=== PATIENT | female | born 2000 | race Caucasian/White ===

== ENCOUNTER 2024-01-07 23:17 | Inpatient (IN) ==
--- OUTSIDE RECORDS SUMMARY | 2024-01-07 23:24 | External Medical Summary | Summary of Care ---
Author Name Unknown Organization [facility] Address [address] [place] [address] Phone [phone] Care Team Providers Care Investigative Agent Name Role Phone Unavailable Primary Care Provider Unavailabl e Reason for Visit * Reason Comments Return Visit Encounter Details Date Type Department Care Team (Late st Contact Info) Description 12/19/2023 10:00 AM EDT Office Visit Gynecology/Obstetric [facility] [address] [facility] [place] [address] Christina Koch PA-C [address] [facility] [place] [phone] Encounter for supervision of other normal , third trimester* Allergies No known active allergiesdocumented as of this encounter (statuses as of 12/19/2023) Medications Medication Sig Dispensed Refills Start Date End Date Status Forte Oral Tablet Take by mouth. Active Breast Pump Dispense double electric breast pump. Dx:Z39.1 1 Each 12/07/2023 Active documented as of this encounter (statuses as of 12/19/2023) Active Problems Problem Noted Date Diagnosed Date Encounter for supervision of other normal , third trimester 11/28/2023 Overview: Transferring care at 35w AB+ bloodtype, HbSAG nonractive, HIV nonreactive, RPR nonreactive, Rubella immune, H/H 12.7/36.4, plt 259 Glucola 128 Last pap 05/22/23 NILM Estimated Date of Delivery Comme nts Yes 12/29/2023 Based on Ultraso und documented as of this encounter (statuses as of 12/19/2023) Social History Tobacco Use Types Packs/Day Years Used Date Smoking Tobacco: Never Smokeless Tobacco: Never Alcohol Use Standard Drinks/Week Comments Not Currently 0 (1 standard drink = 0.6 oz pur e alcohol) Hunger Vital Sign Answer Date Recorded Within the past 12 months, y ou worried that your food would run out before you got the money to buy more. Never true 10/27/19 24 Within the past 12 months, t he food you bought just didn't last and you didn't have money to get more. Never true 10/27/2023 [place] Depression Scale Answer Date Recorded [place] Depression Scale Total 0 11/28/2023 The thought of harming myself has occurred to me . Never 11/28/2023 Childcare Answer Date Recorded Do you feel overwhelmed with taking care of a child, family member or friend? No 10/27/2023 Does your family need help f inding childcare? (Household - for ages 0-17 years) Not on file 10/27/2023 Clothing Answer Date Recorded Have you been unable to get clothing when it was really needed? No 10/27/2023 Is your family able to get c lothes or diapers when needed? (Household - for ages 0-17 years) Not on file 10/27/2023 Personal Safety Answer Date Recorded Do you feel unsafe or have concerns for your saf ety? No 10/27/2023 Do you have concerns for you r family's safety? (Household - for ages 0-17 years) Not on file 10/27/2023 Utilities Answer Date Recorded Do you have trouble paying y our heating, water, or electric bill? No 10/27/2023 Is your family able to pay t he heat, water, or electric bill? (Household - for ages 0-17 years) Not on file 10/27/2023 Does your family have access to good internet? (Household - for ages 0-17 years) Not on file 10/27/2023 Employment Status Answer Date Recorded Are you unemployed or without regular income? No 10/27/2023 Does the household have a re gular source of income? (Household - for ages 0-17 years) Not on file 10/27/2023 Social Connections Answer Date Recorded How often do you feel lonely or isolated from th ose around you? Rarely 10/27/2023 Financial Resource Strain Answer Date R ecorded Do you have any trouble payi ng for your medications, or do you think you might in the future? No 10/27/2023 Does your family have troubl e paying for medicine? (Household - for ages 0-17 years) Not on file 10/27/2023 Transportation Needs Answer Date Record ed READ ONLY Do you have troubl e getting a ride to medical visits or work? Never True 10/27/2023 Does your family have a hard time getting a ride to doctors visits? (Household - for ages 0-17 years) Not on file 10/27/2023 Has lack of transportation k ept you from medical appointments, meetings, work, or from getting things needed for daily living? Check all that apply. (Adult - for ages 18 years and over) Not on file 10/27/2023 Do you (or your family) have trouble finding or paying for a ride (transportation)? (Household - for ages 0-17 years) Not on file 10/27/2023 Housing Stability Answer Date Recorded Do you currently live in a s helter or have no steady place to sleep at night? No 10/27/2023 READ ONLY Do you think you a re at risk of becoming homeless? No 10/27/2023 Does your family worry about paying for your home or becoming homeless? (Household - for ages 0-17 years) Not on file 0 10/27/2023 Are you homeless or worried that you might be in the future? (Adult - for ages 18 years and over) Not on file Are you (or your family) german eless or worried that you might be in the future? (Household - for ages 0-17 years) Not on file Food Insecurity Answer Date Recorded Do you need food for this week? No 10/27/2023 Are you able to get enough f ood for your family? (Household - for ages 0-17 years) Not on file 10/27/2023 Does your family need food t his week? (Household - for ages 0-17 years) Not on file 10/27/2023 Do you always have enough fo od for your family? (Household - for ages 0-17 years) Not on file 10/27/2023 Estimated Date of Delivery Comme nts Yes 12/29/2023 Based on Ultraso und Sex and Gender Information Value Date Recorded Sex Assigned at Female 05/01/2023 7:54 PM EST Gender Identity Female 05/01/2023 7:54 PM EST Sexual Orientation Straight 10/27/2023 8: 36 PM EDT Job Start Date Occupation Industry Not on file Not on file Not on file documented as of this encounter Last Filed Vital Signs Vital Sign Reading Time Taken Comments Blood Pressure 120/66 12/19/2023 9:57 AM EDT Pulse - - Temperature - - Respiratory Rate - - Oxygen Saturation - - Inhaled Oxygen Concentration - - Weight 76.7 kg (169 lb) 12/19/2023 9:57 AM EDT Height 171.5 cm (5' 7.5") 12/19/2023 9:57 AM EDT Body Mass Index 26.08 12/19/2023 9:57 AM EDT documented in this encounter Progress Notes * Christina Koch PA-C - 12/19/2023 10:03 AM EDT Sandra Yesenia Fonseca is a 23 year old female here for her routine OB appointment at 38w4d Her Estimated Date of Delivery: 12/29/23 REVIEW OF SYSTEMS She affirms movement. Denies vaginal bleeding, LOF, contractions, N/V, headaches, vision changes, chest pain, RUQ pain. PHYSICAL EXAM Filed Vitals: 12/19/23 0957 BP: 120/66 Weight: 76.7 kg (169 lb) Height: 1.715 m (5' 7.5") +FHT 140s Fundal height 37 cm ASSESSMENT/PLAN Encounter for supervision of other normal , third trimester (Primary) Supervision of - labor precautions and kick counts reviewed RTO in 1 week Christina Koch PA-C 12/19/2023 documented in this encounter Nursing Notes * Flori August LPN - 12/19/2023 10:00 AM EDT 38w4d Denies concerns. documented in this encounter Plan of Treatment Upcoming Encounters Date Type Department Care Team (Late st Contact Info) Description 12/26/2023 8:30 AM EDT Office Visit Gynecology/Obstetrics [facility] [address] [place] [address] Pura Choudhary CRNP [address] [place] [address] Health Maintenance Due Date Last Done Comments Depression Screening 2010 HIV Screening 2013 HPV (Gardasil) Vaccine (1 - 3-dose series) 2013 Hepatitis C Screening 2016 DTaP,Tdap,and Td Vaccines (1 - Tdap) 2017 Hepatitis B Vaccine (1 of 3 - 19+ 3-dose series) 2017 Pap Smear 09/25/2019 COVID-19 Vaccine (1 - 2022-2 4 season) 2023 Influenza Vaccine (FLU shot) (#1) 2024 MENINGOCOCCAL (MENACTRA/MENVEO) Aged Out No longer eligible based on patient's age to complete this topic Pneumococcal Vaccine: Pediat rics (0 to 5 Years) and At-Risk Patients (6 to 64 Years) Aged Out No longer eligible b ased on patient's age to complete this topic documented as of this encounter Medical Devices Not on filedocumented as of this encounter Visit Diagnoses Diagnosis Encounter for supervision of other normal , third trimester- Primary documented in this encounter
--- OUTSIDE RECORDS SUMMARY | 2024-01-07 23:24 | External Medical Summary | Summary of Care ---
Author Name Unknown Organization [facility] Address [address] [place] [address] Phone [phone] Care Team Providers Care Host/Hostess Restaurant Name Role Phone Unavailable Primary Care Provider Unavailabl e Reason for Visit * Reason Comments Return Visit Encounter Details Date Type Department Care Team (Late st Contact Info) Description 01/03/2024 8:15 AM EDT Office Visit Gynecology/Obstetric s [facility] [address] [facility] [place] [address] Sand[facility] Osullivan CR[facility] [address] [facility] [address] Post-term , 40-42 weeks of gestation*; Encounter for supervision of other normal , third trimester Allergies No known active allergiesdocumented as of this encounter (statuses as of 01/03/2024) Medications Medication Sig Dispensed Refills Start Date End Date Status Forte Oral Tablet Take by mouth. Active Breast Pump Dispense double electric breast pump. Dx:Z39.1 1 Each 12/07/2023 Active documented as of this encounter (statuses as of 01/03/2024) Active Problems Problem Noted Date Diagnosed Date Encounter for supervision of other normal , third trimester 11/28/2023 Overview: Transferring care at 35w AB+ bloodtype, HbSAG nonractive, HIV nonreactive, RPR nonreactive, Rubella immune, H/H 12.7/36.4, plt 259 Glucola 128 Last pap 12/11/23 NILM Estimated Date of Delivery Comme nts Yes 12/29/2023 Based on Ultraso und documented as of this encounter (statuses as of 01/03/2024) Social History Tobacco Use Types Packs/Day Years [...] money to get more. Never true 10/27/2023 [place] Depression Scale Answer Date Recorded [place] Depression Scale Total 0 11/28/2023 The thought [...] Sign Reading Time Taken Comments Blood Pressure 124/74 01/03/2024 8:10 AM EDT Pulse - - Temperature - - Respiratory Rate - - Oxygen Saturation - - Inhaled Oxygen Concentration - - Weight 77.1 kg (170 lb) 01/03/2024 8:10 AM EDT Height 171.5 cm (5' 7.5") 01/03/2024 8:10 AM EDT Body Mass Index 26.23 01/03/2024 8:10 AM EDT documented in this encounter Progress Notes * Sandhya Osullivan CRNP - 01/03/2024 8:28 AM EDT 40w5d No concerns. Baby is active. No contractions, mild cramping only. Denies bleeding or LOF. Has IOL 01/07, will be 41w3d. Agreeable to NST/BERNARD on Monday. KAYLA Walters documented in this encounter Nursing Notes * Flori August LPN - 01/03/2024 8:11 AM EDT 40w5d IOL 01/07. documented in this encounter Plan of Treatment Upcoming Encounters Date Type Department Care Team (Late st Contact Info) Description 01/05/2024 1:15 PM EDT Imaging Radiology [address] [place] [address] 01/05/2024 2:00 PM EDT Office Visit Gynecology/Obstetrics [facility] [address] [place] [address] Tiffany Walker PA-C [address] [place] [address] Por[place]irio, Non Stress Tests [facility] [address] [place] [address] Scheduled Orders Name Type Priority Associated Diagnoses Orde r Schedule US PREG LIMITED 1 OR MORE FETUSES Medical Imaging Routine Post-term , 40-42 weeks of gestation Expected: 01/03/2024, Expires: 02/02/2025 Health Maintenance Due Date Last Done Comments [...] as of this encounter Visit Diagnoses Diagnosis Post-term , 40-42 weeks of gestation- Primary Post term , unspecified episode of care Encounter for supervision of other normal , third trimester documented in this encounter
--- OUTSIDE RECORDS SUMMARY | 2024-01-07 23:24 | External Medical Summary | Summary of Care ---
Author Name Unknown Organization [facility] Address [address] [place] [address] Phone [phone] Care Team Providers Care Php Mysql Developer Name Role Phone Unavailable Primary Care Provider Unavailabl e Reason for Visit * Reason Comments Return Visit Non Stress Test Encounter Details Date Type Department Care Team (Late st Contact Info) Description 01/05/2024 2:00 PM EDT Office Visit Gynecology/Obstetric s [facility] [address] [facility] [place] [address] Tiffany Walker PA-C [address] [place] [address] Porfirio Non Stress Tests [facility] [address] [place] [address] Encounter for supervision of other normal , third trimester* Allergies No known active allergiesdocumented as of this encounter (statuses as of 01/05/2024) Medications Medication Sig Dispensed Refills Start Date End Date Status Forte Oral Tablet Take by mouth. Active Breast Pump Dispense double electric breast pump. Dx:Z39.1 1 Each 12/07/2023 Active documented as of this encounter (statuses as of 01/05/2024) Active Problems Problem Noted Date Diagnosed Date Encounter for supervision of other normal , third trimester 11/28/2023 Overview: Transferring care at 35w AB+ bloodtype, HbSAG nonractive, HIV nonreactive, RPR nonreactive, Rubella immune, H/H 12.7/36.4, plt 259 Glucola 128 Last pap 05/22/23 NILM Estimated Date of Delivery Comme nts Yes 12/29/2023 Based on Ultraso und documented as of this encounter (statuses as of 01/05/2024) Social History Tobacco Use Types Packs/Day Years [...] money to get more. Never true 10/27/2023 [place] Depression Scale Answer Date Recorded [place] Depression Scale Total 0 11/28/2023 The thought [...] Sign Reading Time Taken Comments Blood Pressure 124/72 01/05/2024 1:53 PM EDT Pulse - - Temperature - - Respiratory Rate - - Oxygen Saturation - - Inhaled Oxygen Concentration - - Weight 76.9 kg (169 lb 8 oz) 01/05/2024 1:53 PM EDT Height 171.5 cm (5' 7.5") 01/05/2024 1:53 PM EDT Body Mass Index 26.16 01/05/2024 1:53 PM EDT documented in this encounter Progress Notes * Tiffany Walker PA-C - 01/05/2024 2:56 PM EDT 41w0d ASSESSMENT assessment with Non-stress Test completed on 01/05/2024 at 41.0 weeks gestation for indicationof Post ANTONIO heart baseline: 135 bpm Variability: Moderate Decelerations: absent Accelerations: present Contractions: Present irregular, q4-8 minutes, not felt by patient NST start time: 13:30 NST stop time: 14:11 NST strip reviewed, interpreted, and approved by OB provider, Tiffany Walker PA-C. NST strip stored in clinic storage file BERNARD today WNL, preliminary 10.4 cm, vertex. Offered cervical check -- pt politely declines IOL 01/08/2024, pt has number to call. Labor precautions reviewed. RTC for PP visit Tiffany Walker PA-C documented in this encounter Nursing Notes * Farida Cross, RN - 01/05/2024 1:54 PM EDT Patient there for NST for post dates 41w0d today + FM No concern Had BERNARD today- 10.4 Farida Cross RN documented in this encounter Plan of Treatment Health Maintenance Due Date Last Done Comments Depression Screening 2010 HIV Screening 2013 HPV (Gardasil) Vaccine (1 - 3-dose series) 2013 Hepatitis C Screening 2016 DTaP,Tdap,and Td Vaccines (1 - Tdap) 2017 Hepatitis B Vaccine (1 of 3 - 19+ 3-dose series) 2017 Pap Smear 09/25/2019 COVID-19 Vaccine ( - 2022-2 4 season) 2023 Influenza Vaccine [...]
--- OUTSIDE RECORDS SUMMARY | 2024-01-07 23:24 | External Medical Summary | Summary of Care ---
Author Name Unknown Organization [facility] Address [address] [place] [address] Phone [phone] Care Team Providers Care Asset Coordinator Name Role Phone Unavailable Primary Care Provider Unavailabl e Reason for Visit * Reason Comments Return Visit Encounter Details Date Type Department Care Team (Late st Contact Info) Description 12/07/2023 9:00 AM EDT Office Visit Gynecology/Obstetric s [facility] [address] [place] [address] Sandhya Osullivan CRNP [address] [place] [address] Encounter for supervision of other normal , third trimester* Allergies No known active allergiesdocumented as of this encounter (statuses as of 12/07/2023) Medications Medication Sig Dispensed Refills Start Date End Date Status Forte Oral Tablet Take by mouth. Active Breast Pump Dispense double electric breast pump. Dx:Z39.1 1 Each 12/07/2023 Active documented as of this encounter (statuses as of 12/07/2023) Active Problems Problem Noted Date Diagnosed Date Encounter for supervision of other normal , third trimester 11/28/2023 Overview: Transferring care at 35w AB+ bloodtype, HbSAG nonractive, HIV nonreactive, RPR nonreactive, Rubella immune, H/H 12.7/36.4, plt 259 Glucola 128 Last pap 05/22/23 NILM Estimated Date of Delivery Comme nts Yes 12/29/2023 Based on Ultraso und documented as of this encounter (statuses as of 12/07/2023) Social History Tobacco Use Types Packs/Day Years [...] money to get more. Never true 10/27/2023 [place] Depression Scale Answer Date Recorded [place] Depression Scale Total 0 11/28/2023 The thought [...] Sign Reading Time Taken Comments Blood Pressure 128/68 12/07/2023 9:02 AM EDT Pulse - - Temperature - - Respiratory Rate - - Oxygen Saturation - - Inhaled Oxygen Concentration - - Weight 76.4 kg (168 lb 6.4 oz) 12/07/2023 9:02 A M EDT Height - - Body Mass Index 25.99 11/28/2023 1:01 PM EDT documented in this encounter Progress Notes * Sandhya Osullivan CRNP - 12/07/2023 9:15 AM EDT 36w6d No concerns. Baby is active. No contractions, bleeding, LOF. Planning to breastfeed, script given to nursing to send to [facility]. GBS today. Compressor Operator Portable Documentation Provider requested assistant project manager. Name of assistant project manager: KAYLA Chambers * Davida Leary MED ASSIST - 12/07/2023 9:02 AM EDT 36w6d Denies vaginal bleeding/rom + movement No new concerns GBS today documented in this encounter Plan of Treatment Upcoming Encounters Date Type Department Care Team (Late st Contact Info) Description 12/12/2023 8:45 AM EDT [facility] [address] [place] [address] Pura Choudhary CRNP [address] [place] [address] 12/26/2023 8:30 AM EDT Office Visit Gynecology/Obstetrics [facility] [address] [place] [address] BackerPura CRNP [address] [place] [address] Pending Results Name Type Priority Associated Diagnoses Date /Time GROUP B STREP CULTURE/PCR Lab Routine Encounter for supervision of other normal , third trimester 12/07/2023 9:28 AM EDT Scheduled Orders Name Type Priority Associated Diagnoses Orde r Schedule GROUP B STREP CULTURE/PCR Lab Routine Encounter for supervision of other normal , third trimester Expected: 12/07/2023, Expires: 12/06/2024 Health Maintenance Due Date Last Done Comments Depression Screening 2010 GARDASIL-HPV IMMUNIZATION SE CECILIA (1 - 3-dose series) 2013 HIV Screening 2013 Hepatitis C Screening 2016 DTaP,Tdap,and Td Vaccines (1 - Tdap) 2017 Hepatitis B (1 of 3 - 19+ 3- dose series) 2017 Pap Smear 09/25/2019 COVID-19 Vaccine ( - 2022-2 4 season) 2023 Influenza Vaccine (FLU shot) (Season Ended) 2024 MENINGOCOCCAL (MENACTRA/MENVEO) Aged Out No longer [...]
--- OUTSIDE RECORDS SUMMARY | 2024-01-07 23:24 | External Medical Summary | Summary of Care ---
Author Name Unknown Organization [facility] Address [address] [place] [address] Phone [phone] Care Team Providers Care Reception Interviewer Name Role Phone Unavailable Primary Care Provider Unavailabl e Reason for Visit * Reason Comments Return Visit Encounter Details Date Type Department Care Team (Late st Contact Info) Description 12/12/2023 8:45 AM EDT Office Visit Gynecology/Obstetric s [facility] [address] [facility] [place] [address] Pura [facility]oudhary CRNP [address] [facility] [address] Encounter for supervision of other normal , third trimester* Allergies No known active allergiesdocumented as of this encounter (statuses as of 12/12/2023) Medications Medication Sig Dispensed Refills Start Date End Date Status Forte Oral Tablet Take by mouth. Active Breast Pump Dispense double electric breast pump. Dx:Z39.1 1 Each 12/07/2023 Active documented as of this encounter (statuses as of 12/12/2023) Active Problems Problem Noted Date Diagnosed Date Encounter for supervision of other normal , third trimester 11/28/2023 Overview: Transferring care at 35w AB+ bloodtype, HbSAG nonractive, HIV nonreactive, RPR nonreactive, Rubella immune, H/H 12.7/36.4, plt 259 Glucola 128 Last pap 05/22/23 NILM Estimated Date of Delivery Comme nts Yes 12/29/2023 Based on Ultraso und documented as of this encounter (statuses as of 12/12/2023) Social History Tobacco Use Types Packs/Day Years [...] money to get more. Never true 10/27/2023 [place] Depression Scale Answer Date Recorded [place] Depression Scale Total 0 11/28/2023 The thought [...] Sign Reading Time Taken Comments Blood Pressure 118/64 12/12/2023 8:44 AM EDT Pulse - - Temperature - - Respiratory Rate - - Oxygen Saturation - - Inhaled Oxygen Concentration - - Weight 74.8 kg (165 lb) 12/12/2023 8:44 AM EDT Height 171.5 cm (5' 7.5") 12/12/2023 8:44 AM EDT Body Mass Index 25.46 12/12/2023 8:44 AM EDT documented in this encounter Progress Notes * Pura Choudhary CRNP - 12/12/2023 8:54 AM EDT 37w4d Doing well, no ctx/leaking/bleeding. Baby is active. Ordered a breast pump. Provided with labor instructions/phone number and discussed when to call. Aware of neg GBS. 1 week return KAYLA Benitez documented in this encounter Nursing Notes * Fany Grayson LPN - 12/12/2023 8:44 AM EDT 37w4d Denies any concerns documented in this encounter Plan of Treatment Upcoming Encounters Date Type Department Care Team (Late st Contact Info) Description 12/19/2023 10:00 AM EDT Office Visit Gynecology/Obstetrics [address] [place] [address] Christina Koch PA-C [address] [place] [address] 12/26/2023 8:30 AM EDT Office Visit Gynecology/Obstetrics [facility] [address] [place] [address] Backer, KAYLA Navarro [address] [place] [address] Health Maintenance Due Date Last Done Comments [...]
--- OUTSIDE RECORDS SUMMARY | 2024-01-07 23:24 | External Medical Summary | Summary of Care ---
Author Name Unknown Organization [facility] Address [address] [place] [address] Phone [phone] Care Team Providers Care Audio Visual Manager Name Role Phone Unavailable Primary Care Provider Unavailabl e Reason for Visit * Reason Comments Return Visit Encounter Details Date Type Department Care Team (Late st Contact Info) Description 12/26/2023 8:30 AM EDT Office Visit Gynecology/Obstetric s Ami Monroy [address] [facility] [place] [address] Pura Choudhary CRNP [address] [facility] [address] Encounter for supervision of other normal , third trimester* Allergies No known active allergiesdocumented as of this encounter (statuses as of 12/26/2023) Medications Medication Sig Dispensed Refills Start Date End Date Status Forte Oral Tablet Take by mouth. Active Breast Pump Dispense double electric breast pump. Dx:Z39.1 1 Each 12/07/2023 Active documented as of this encounter (statuses as of 12/26/2023) Active Problems Problem Noted Date Diagnosed Date Encounter for supervision of other normal , third trimester 11/28/2023 Overview: Transferring care at 35w AB+ bloodtype, HbSAG nonractive, HIV nonreactive, RPR nonreactive, Rubella immune, H/H 12.7/36.4, plt 259 Glucola 128 Last pap 05/22/23 NILM Estimated Date of Delivery Comme nts Yes 12/29/2023 Based on Ultraso und documented as of this encounter (statuses as of 12/26/2023) Social History Tobacco Use Types Packs/Day Years [...] money to get more. Never true 10/27/2023 [place] Depression Scale Answer Date Recorded [place] Depression Scale Total 0 11/28/2023 The thought [...] Sign Reading Time Taken Comments Blood Pressure 122/64 12/26/2023 8:27 AM EDT Pulse - - Temperature - - Respiratory Rate - - Oxygen Saturation - - Inhaled Oxygen Concentration - - Weight 76.6 kg (168 lb 12.8 oz) 12/26/2023 8:27 AM EDT Height - - Body Mass Index 26.05 12/19/2023 9:57 AM EDT documented in this encounter Progress Notes * Pura Choudhary CRNP - 12/26/2023 8:28 AM EDT 39w4d Doing well. No regular ctx, leaking/bleeding. Baby is active. Agreeable to 41 week IOL. Reviewed labor signs. Return in 1 week. KAYLA Benitez * Yue Hobson LPN - 12/26/2023 8:25 AM EDT 39w4d Denies vaginal bleeding/rom + movement No new concerns documented in this encounter Plan of Treatment Upcoming Encounters Date Type Department Care Team (Late st Contact Info) Description 01/03/2024 8:15 AM EDT Office Visit Gynecology/Obstetrics Ami Monroy [address] [address] Sandhya Osullivan CRNP [address] [place] [address] Health Maintenance Due Date Last Done Comments [...]
--- OUTSIDE RECORDS SUMMARY | 2024-01-07 23:24 | External Medical Summary | Summary of Care ---
Author Name Unknown Organization [facility] Address [address] [place] [address] Phone [phone] Care Team Providers Care Geriatric Care Manager Name Role Phone Unavailable Primary Care Provider Unavailabl e Reason for Visit * Reason Comments Return Visit Encounter Details Date Type Department Care Team (Late st Contact Info) Description 01/03/2024 8:15 AM EDT Office Visit Gynecology/Obstetric s Hansenapryl Monroy [address] [facility] [place] [address] Sandhya Osullivan CRNP [address] [facility] [address] Post-term , 40-42 weeks of gestation*; Encounter [...] money to get more. Never true 10/27/2023 [place] Depression Scale Answer Date Recorded [place] Depression Scale Total 0 11/28/2023 The thought [...] Description 01/05/2024 1:15 PM EDT Imaging Radiology [address] [place] [address] 01/05/2024 2:00 PM EDT Office Visit Gynecology/Obstetrics Ami Monroy [address] [place] [address] Tiffany Walker PA-C [address] [place] [address] Porfirio, Non Stress Tests Caden [address] [place] [address] Scheduled Orders Name Type Priority Associated Diagnoses [...]
--- OUTSIDE RECORDS SUMMARY | 2024-01-07 23:25 | External Medical Summary ---
Author Name Unknown Address Unknown Organization K01:[facility] [place] [facility] [address] [place] [address] Laboratory Report Ordering Provider Test Date Status LUCIA ROLON 12/07/2023 09:28:17 Final Observation Date Value Abnormality Reference (Units ) Status Streptococcus agalactiae DNA [Presence] in Specimen by CRUZITO with probe detection 12/07/2023 09:28:17 Negative Negative Final No Group B Streptococcus det ected by culture-enhanced PCR (amplified probe). GBS GBSCT - [facility] 12/07/2023 09:28:17 0.0 Final GBS SPCCT - [facility] 12/07/2023 09:28:17 31.1 Final Performing Location [facility] [place] [address] [place] [address]
--- OUTSIDE RECORDS SUMMARY | 2024-01-07 23:25 | External Medical Summary | Summary of Care ---
Author Name Unknown Organization [facility] Address [address] [place] [address] Phone [phone] Care Team Providers Care Mortgage Broker Name Role Phone Unavailable Primary Care Provider Unavailabl e Reason for Visit * Reason Comments Return Visit Encounter Details Date Type Department Care Team (Late st Contact Info) Description 12/07/2023 9:00 AM EDT Office Visit Gynecology/Obstetric s Hansenapryl Monroy [address] [place] [address] Sandhya Osullivan CRNP [address] [place] [facility] [place] [address] Encounter for supervision of other normal , [...] money to get more. Never true 10/27/2023 [place] Depression Scale Answer Date Recorded [place] Depression Scale Total 0 11/28/2023 The thought [...] to send to [facility]. GBS today. Vehicle Body Maker Documentation Provider requested mechanical applications engineer. Name of mechanical applications engineer: KAYLA Chambers * Davida Leary MED ASSIST - 12/07/2023 9:02 AM EDT 36w6d Denies vaginal bleeding/rom + movement No new concerns GBS today documented in this encounter Plan of Treatment Upcoming Encounters Date Type Department Care Team (Late st Contact Info) Description 12/12/2023 8:45 AM EDT [facility] [address] [place] [address] Pura Choudhary CRNP [address] [place] [address] 12/26/2023 8:30 AM EDT Office Visit Gynecology/Obstetrics Ami Monroy [address] [place] [address] BackerPura CRNP [address] [place] [address] Pending Results Name Type Priority Associated Diagnoses [...]
--- OUTSIDE RECORDS SUMMARY | 2024-01-07 23:25 | External Medical Summary | Summary of Care ---
Author Name Unknown Organization [facility] Address [address] [place] [address] Phone [phone] Care Team Providers Care Solution Lead Name Role Phone Unavailable Primary Care Provider Unavailabl e Reason for Visit * Reason Comments Nurse Documentation Encounter Details Date Type Department Care Team (Late st Contact Info) Description 11/02/2023 9:30 AM EDT Nurse Only Gynecology/Obstetrics [facility] [address] [facility] [place] [address] , Nurse Bus Info Consultant [facility] [place] [address] Nurse Documentation Allergies No known active allergiesdocumented as of this encounter (statuses as of 11/02/2023) Medications Medication Sig Dispensed Refills Start Date End Date Status Forte Oral Tablet Take by mouth. Active documented as of this encounter (statuses as of 11/02/2023) Social History Tobacco Use Types Packs/Day Years Used Date Smoking Tobacco: Never Smokeless Tobacco: Never Tobacco Cessation:Counseling Given: No Alcohol Use Standard Drinks/Week Comments Not Currently [...] money to get more. Never true 10/27/2023 Estimated Date of Delivery Comme nts [...] Sign Reading Time Taken Comments Blood Pressure - - Pulse - - Temperature - - Respiratory Rate - - Oxygen Saturation - - Inhaled Oxygen Concentration - - Weight 68.9 kg (152 lb) 11/02/2023 9:31 AM EDT Height - - Body Mass Index - - documented in this encounter Nursing Notes * Fany Grayson LPN - 11/02/2023 9:52 AM EDT Pt is a transfer from Dr Morgan's office. Pt did not have any genetic testing. She also said her Glucose test was normal. 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 Pt did have ectopic summernd did have 1 dose of methotrexate. I went over appts and what to expect along with giving pt our triage number. Pt declined any concerns at this time documented in this encounter Plan of Treatment Upcoming Encounters Date Type Department Care Team (Late st Contact Info) Description 11/28/2023 1:00 PM EDT Office Visit Gynecology/Obstetrics [facility] [address] [address] Francesco Morgan MD [address] [place] [phone] Health Maintenance Due Date Last Done Comments Depression Screening 2010 GARDASIL-HPV IMMUNIZATION SE CECILIA (1 - 3-dose series) 2013 HIV Screening 2013 Hepatitis C Screening 2016 DTaP,Tdap,and Td Vaccines (1 - Tdap) 2017 Hepatitis B (1 of 3 - 19+ 3- dose series) 2017 Pap Smear 09/25/2019 COVID-19 Vaccine (2022-2 4 season) 2023 Influenza Vaccine (FLU shot) [...] Visit Diagnoses Diagnosis Encounter for supervision of normal - Primary Supervision of other normal documented in this encounter
--- OUTSIDE RECORDS SUMMARY | 2024-01-07 23:25 | External Medical Summary | Summary of Care ---
Author Name Unknown Organization [facility] Address [address] [place] [address] Phone [phone] Care Team Providers Care Guard Dance Hall Name Role Phone Unavailable Primary Care Provider Unavailabl e Encounter Details Date Type Department Care Team (Late st Contact Info) Description 10/27/2023 Telephone Gynecology/Obstetrics Ami Franco [address] [place] [address] Chung Acosta MD [address] [place] [address] Social History Tobacco Use Types Packs/Day Years Used Date Smoking Tobacco: Never Assessed Sex and Gender Information Value Date Recorded Sex Assigned at Female 05/01/2023 7:54 PM EST Gender Identity Female 05/01/2023 7:54 PM EST Sexual Orientation Not on file documented as of this encounter Miscellaneous Notes * Telephone Encounter - Susie Amaya RN - 10/27/2023 10:54 AM EDT Spoke with pt. Appt for nob intake and NOB scheduled. EDC 12/29/2023 * Telephone Encounter - China Chery RN - 10/27/2023 10:31 AM EDT Pt called in, is a current pt of Dr. Morgan and would like to set up care with kelvin franco. documented in this encounter Plan of Treatment Upcoming Encounters Date Type Department Care Team (Late st Contact Info) Description 11/02/2023 9:30 AM EDT Nurse Only Gynecology/Obstetrics [facility] [address] [place] [address] Gw, Nurse Lift Slab Operator [place] [address] [place] [address] 11/28/2023 1:00 PM EDT Office Visit Gynecology/Obstetrics [facility] [address] [place] [address] Francesco Morgan MD [address] [place] [phone] Health Maintenance Due Date Last Done Comments [...]
--- OUTSIDE RECORDS SUMMARY | 2024-01-07 23:25 | External Medical Summary | Summary of Care ---
Author Name Unknown Organization [facility] Address [address] [place] [address] Phone [phone] Care Team Providers Care Medical Collections Representative Name Role Phone Unavailable Primary Care Provider Unavailabl e Reason for Visit * Reason Comments New Visit Encounter Details Date Type Department Care Team (Late st Contact Info) Description 11/28/2023 1:00 PM EDT Office Visit Gynecology/Obstetric s Ami Monroy [address] [facility] [place] [address] Francesco Morgan MD [address] [facility] [place] [phone] Encounter for supervision of other normal in third trimester* Allergies No known active allergiesdocumented as of this encounter (statuses as of 11/28/2023) Medications Medication Sig Dispensed Refills Start Date End Date Status Forte Oral Tablet Take by mouth. Active documented as of this encounter (statuses as of 11/28/2023) Active Problems Problem Noted Date Diagnosed Date Encounter for supervision of other normal , third trimester 11/28/2023 Overview: Transferring care at 35w AB+ bloodtype, HbSAG nonractive, HIV nonreactive, RPR nonreactive, Rubella immune, H/H 12.7/36.4, plt 259 Glucola 128 Last pap 05/22/23 NILM Estimated Date of Delivery Comme nts Yes 12/29/2023 Based on Ultraso und documented as of this encounter (statuses as of 11/28/2023) Social History Tobacco Use Types Packs/Day Years [...] money to get more. Never true 10/27/2023 Childcare Answer Date Recorded Do you feel [...] Reading Time Taken Comments Blood Pressure 124/72 11/28/2023 1:01 PM EDT Pulse - - Temperature - - Respiratory Rate - - Oxygen Saturation - - Inhaled Oxygen Concentration - - Weight 73.9 kg (163 lb) 11/28/2023 1:01 PM EDT Height 171.5 cm (5' 7.5") 11/28/2023 1:01 PM EDT Body Mass Index 25.15 11/28/2023 1:01 PM EDT documented in this encounter Progress Notes * Francesco Morgan MD - 11/28/2023 1:29 PM EDT Patient is doing well with no significant complaints. We discussed beta strep screening. We discussed why it was done and what you do to treat it. * Yue Hobson LPN - 11/28/2023 1:05 PM EDT 35w4d Denies vaginal bleeding/rom + movement No new concerns documented in this encounter Plan of Treatment Upcoming Encounters Date Type Department Care Team (Late st Contact Info) Description 12/07/2023 9:00 AM EDT [facility] [address] [place] [address] Sandhya Osullivan CRNP [address] [place] [address] Health Maintenance Due Date Last Done Comments [...] Diagnosis Encounter for supervision of other normal in third trimester- Primary documented in this encounter
[2024-01-08] MEDS ORDERED: LIDOCAINE 1% LOCAL 20 ML VIAL INFIL PRN (00:03)
[2024-01-08] MEDS ORDERED: OXYTOCIN 30 UNITS/NSS 30 UNITS/500 ML BAG IV PRN ×2 (00:03→09:20)
[2024-01-08] MEDS ORDERED: BUTORPHANOL TARTRATE 2 MG/ML VIAL IV PRN (00:05)
[2024-01-08 00:43] LABS: Hematocrit (blood only) 30.9 % (37.0-47.0); Hemoglobin 9.7 g/dl (12.0-16.0); Mean Corpuscular Hemoglobin 24.2 pg (25.0-34.0); Mean Corpuscular Hgb Conc 31.4 g/dL (32.0-36.0); Mean Corpuscular Volume 77.1 fL (80.0-100.0); Mean Platelet Volume 10.7 fL (9.4-12.4); Platelet Count 288 K/uL (130-400); RDW Coefficient of Variation 14.6 % (11.5-14.5); RDW Standard Deviation 40.6 fL (36.4-46.3); Red Blood Count 4.01 M/uL (4.20-5.40); White Blood Count 13.33 K/ul (4.8-10.8)
[2024-01-08] MEDS: LACTATED RINGER'S 1,000 ML IV PRN (03:16)
--- NOTE | 2024-01-08 04:35 | Anesthesiology Consultation ---
Date of Service January 08, 2024 Assessment & Plan Chart Review Chart Review: Acceptable Risk for Labor Epidural Consults Requested none ASA ASA2 Proposed Anesthesia Anesthesia Type: Labor Epidural Risk / Benefits Reviewed With: PT / POA / Parent / Guardian, Accepts Plan and Informed Consent Obtained History Height/Weight Height: 5 ft 8 in Weight: 74.843 kg Allergies Allergy/AdvReac Type Severity Reaction Status Date / Time No Known Allergies Allergy Unverified 11/30/22 10:59 Medications Home Medications Medication Instructions Recorded Confirmed Last Taken No Known Home Medications 11/30/22 11/30/22 Unknown Active Medications Generic Name Dose Route Start Last Admin Trade Name Freq PRN Reason Stop Dose Admin Lactated Ringer's 1,000 mls @ 125 mls/hr 01/08/24 00:03 01/08/24 03:16 Lr IV 01/10/24 00:02 999 mls/hr .Q8H PRN Administration L&D Protocol Protocol Exercise / Class Metabolic Activity II 4-5 Yardwork/Stairs/Walk up hill Past Family History Family History Father Depression Other Colorectal cancer Past Surgical History Surgical History History of wisdom tooth extraction Hx of amputation of foot left Past Anesthesia History No Hx of Anesthesia Complications and No Family Hx of Anesthesia Complications History of PONV No Hx of PONV and No Hx of Motion Sickness Social History Smoking Status: Never smoker Hx Alcohol Use: No Hx Substance Use: No Physical Exam Vital Signs Last Vital Signs Temp 98.2 F 01/07/24 23:40 Pulse 107 H 01/07/24 23:37 Resp 18 01/07/24 23:40 BP 135/85 01/07/24 23:37 ENMT Mouth: no dentition abnormality Thyromental Distance: > or= 3.5 Finger Breadths Mallampati Class: II Neck normal visual inspection Respiratory normal respiratory effort Auscultation: lungs clear to auscultation bilaterally Cardiovascular Rate/Rhythm: regular rate and regular rhythm Testing Laboratory Results 01/08/24 00:20
[2024-01-08] MEDS: BUPIVACAINE 0.25% PF 30 ML VIAL ONE (04:43)
[2024-01-08] MEDS: fentANYL 2 MCG/ML BUPIVacaine 0.125%-NSS 100ML BAG ONE (04:49)
[2024-01-08] MEDS ORDERED: SODIUM CHLORIDE 0.9% PF INJ 10 ML VIAL EPI PRN (04:51)
[2024-01-08] MEDS ORDERED: ONDANSETRON INJ 2 MG/ML 2 ML VIAL IV PRN (04:51)
[2024-01-08] MEDS ORDERED: diphenhydrAMINE 50 MG/ML VIAL IV PRN (04:51)
[2024-01-08] MEDS ORDERED: BUPIVACAINE 0.25% PF 30 ML VIAL EPI PRN (04:51)
[2024-01-08] MEDS ORDERED: ROPIVACAINE 0.5% PF 5 MG/ML 20 ML VIAL EPI PRN (04:51)
[2024-01-08] MEDS ORDERED: NALBUPHINE HCL 5 MG in SYRINGE 0 ML IV PRN (04:51)
[2024-01-08] MEDS ORDERED: LIDOCAINE 2% MPF LOCAL 5 ML VIAL EPI PRN (04:51)
[2024-01-08] MEDS ORDERED: NALOXONE HCL 1 MG in SODIUM CHLORIDE 0.9% 1,000 ML IV PRN (04:51)
[2024-01-08] MEDS ORDERED: fentANYL 2 MCG/ML BUPIVacaine 0.125%-NSS 100ML BAG EPI PRN (04:51)
[2024-01-08] MEDS ORDERED: NALOXONE HCL 0.4 MG/1 ML VIAL/CARP IV PRN (04:51)
[2024-01-08] MEDS ORDERED: fentaNYL citrate PF 100 MCG/2 ML VIAL EPI PRN (04:51)
[2024-01-08] MEDS ORDERED: ePHEDrine sulfate 50 MG/ML AMP IV PRN (04:51)
[2024-01-08] MEDS: LIDOCAINE 2%/EPINEPHRINE 1:200,000 20 ML PF ONE (04:53)
[2024-01-08] MEDS: ePHEDrine sulfate 50 MG/ML AMP ONE (06:03)
[2024-01-08] MEDS: BUPIVACAINE 0.25% PF 30 ML VIAL EPI STA (06:22)
[2024-01-08] MEDS: fentaNYL citrate PF 100 MCG/2 ML VIAL ONE (06:22)
[2024-01-08] MEDS: SODIUM CHLORIDE 0.9% PF INJ 10 ML VIAL ONE (06:22)
[2024-01-08] MEDS: LIDOCAINE 2%/EPINEPHRINE 1:200,000 20 ML PF EPI STA (06:23)
[2024-01-08] MEDS: SODIUM CHLORIDE 0.9% PF INJ 10 ML VIAL EPI STA (06:23)
[2024-01-08] MEDS: fentaNYL citrate PF 100 MCG/2 ML VIAL EPI STA (06:23)
[2024-01-08] MEDS: OXYTOCIN 30 UNITS/NSS 30 UNITS/500 ML BAG IV PRN (07:20)
[2024-01-08] MEDS: METHYLERGONOVINE MALEATE 0.2 MG/ML AMP ONE (08:57)
[2024-01-08] MEDS ORDERED: miSOPROStoL 200 MCG TAB ONE (09:07)
[2024-01-08] MEDS: miSOPROStoL 200 MCG TAB PR ONE (09:12)
[2024-01-08] MEDS ORDERED: HYDROCORTISONE ACETATE 25 MG SUPP PR PRN (09:20)
[2024-01-08] MEDS ORDERED: BENZOCAINE 20% SPRY 85 APPLN/85 GM CAN EXT PRN (09:20)
[2024-01-08] MEDS ORDERED: bisacodyL 10 MG SUPP PR PRN (09:20)
[2024-01-08] MEDS ORDERED: METHYLERGONOVINE MALEATE 0.2 MG/ML AMP IM ONE (09:20)
[2024-01-08] MEDS ORDERED: ACETAMINOPHEN W/CODEINE #3 1 TAB PO PRN (09:20)
[2024-01-08] MEDS ORDERED: DIPHTHER/TETAN/PERTUS Vaccine (Tdap, Adol/Adult) 0.5mL IM ONE (09:20)
[2024-01-08] MEDS ORDERED: oxyCODONE/ACETAMINOPHEN 5mg/325mg TAB PO PRN (09:20)
--- NOTE | 2024-01-08 09:26 | Delivery Summary ---
Vaginal Delivery Summary Date of Service January 08, 2024 Vaginal Delivery Summary Patient's been followed for care and delivery. is well- regulated. She delivered at 41 weeks 2 days gestation. She went into spontaneous labor. She received epidural for pain control about 5 to 6 cm. Was then checked and she was 9 cm membranes were ruptured fluid was clear. Augmented with IV Pitocin. Pushed out a live female via direct occiput anterior position over an intact perineum after approximately 1 hour pushing tight nuchal cord could not be reduced over the head. Cord was clamped cut. Infant was suctioned through the mouth and the nose. Shoulders were delivered without difficulty. Cord blood was taken. With IV Pitocin running placenta was removed intact. We also used Methergine to help contract the uterus. Flexion of the perineum revealed a second-degree laceration. Vaginal mucosa was approximated out to beyond the hymenal ring with a running 2-0 Vicryl. A deep suture was used to approximate the bulbocavernosus muscle. A separate suture was used to bolster the rectal sphincter capsule. Then 2 deep sutures were used to approximate the perineal body. Subcutaneous sutures used approximate the perineal skin edges. Sponges were removed. 800 of Cytotec was administered rectally. And also the rectal mucosa was checked for any sutures everything was good. Quantitative blood loss was 209 mL.
--- NOTE | 2024-01-08 10:41 | Anesthesia Procedure Note ---
Date of Service January 08, 2024 Anesthesia Post Epidural Note Vital Signs Vital Signs: Temp Pulse Resp BP Pulse Ox 36.8 C 104 H 18 141/71 H 82 L 01/08/24 05:41 01/08/24 10:40 01/08/24 05:41 01/08/24 10:40 01/08/24 09:21 Pain Intensity Bilateral Perineal: Pain Intensity: 6 Notes Mental Status: alert / awake / arousable and participated in evaluation Nausea / Vomiting: adequately controlled Pain: adequately controlled Airway Patency, RR, SpO2: stable & adequate BP & HR: stable & adequate Hydration State: stable & adequate Neuraxial Anesthesia: was administered and sensory block is resolving Anesthetic Complications: no major complications apparent and Pt Satisfied with anesthetic care Epidural: Removed without complications and With tip intact
[2024-01-08] MEDS: ACETAMINOPHEN 325 MG TAB PO PRN (17:12)
[2024-01-08] MEDS: DOCUSATE SODIUM 100 MG CAP PO SCH (21:08)
[2024-01-08] MEDS: IBUPROFEN 600 MG TAB PO PRN (21:08)
[2024-01-09 06:20] LABS: Hematocrit (blood only) 25.5 % (37.0-47.0); Hemoglobin 8.1 g/dl (12.0-16.0); Mean Corpuscular Hemoglobin 24.5 pg (25.0-34.0); Mean Corpuscular Hgb Conc 31.8 g/dL (32.0-36.0); Mean Corpuscular Volume 77.3 fL (80.0-100.0); Mean Platelet Volume 10.1 fL (9.4-12.4); Platelet Count 227 K/uL (130-400); RDW Coefficient of Variation 15.1 % (11.5-14.5); RDW Standard Deviation 41.8 fL (36.4-46.3); White Blood Count 14.65 K/ul (4.8-10.8)
[2024-01-09] MEDS: PRENATAL VITAMIN 1 TAB PO SCH (08:03)
--- NOTE | 2024-01-09 09:14 | Obstetrical Progress Note ---
Date of Service January 09, 2024 Assessment & Plan Admission and Anticipated Discharge Date Admission Date: January 07, 2024 Subjective Patient is seen and examined. She feels well, no complaints. Desires d/c this afternoon Ambulating without dizziness Voiding without difficulty Tolerating regular diet with out N&V Bleeding is minimal No fever/ chills/ CP/ SOB/ N&V/ Leg pain Breast feeding without problems Vital Signs Temp Pulse Resp BP Pulse Ox O2 Del Method 01/09/24 07:45 36.9 C 80 16 137/76 97 Room Air 01/09/24 04:30 36.8 C 89 18 120/79 97 Room Air 01/09/24 00:20 36.8 C 81 18 136/76 97 Room Air Lab Results 01/08/24 01/09/24 Range/Units 00:20 05:53 WBC 13.33 H 14.65 H (4.8-10.8) K/ul RBC 4.01 L 3.30 L (4.20-5.40) M/uL Hgb 9.7 L 8.1 L (12.0-16.0) g/dl Hct 30.9 L 25.5 L (37.0-47.0) % MCV 77.1 L 77.3 L (80.0-100.0) fL MCH 24.2 L 24.5 L (25.0-34.0) pg MCHC 31.4 L 31.8 L (32.0-36.0) g/dL RDW Std Deviation 40.6 41.8 (36.4-46.3) fL RDW Coeff of Hunter 14.6 H 15.1 H (11.5-14.5) % Plt Count 288 227 (130-400) K/uL MPV 10.7 10.1 (9.4-12.4) fL PE: General: Alert, orientedx3, NAD Abd: soft, NT, fundus firm, below Umbilicus Perineum intact, Lochia rubra minimal Ext; NT, no edema AP: 23 yo s/p , ppd# 1 VSS Afebrile doing well Continue routine care Hb 8, Asymptomatic, discussed the pros and cons of IV vs PO iron and how to use PO iron, she decided to have IV iron before d/c today and then continue with PO Iron and PNV at home All questions were answered D/C home this afternoon Results & Data Vital Signs (Past 12 Hours) Vital Signs Temp Pulse Resp BP Pulse Ox O2 Del Method 01/09/24 07:45 36.9 C 80 16 137/76 97 Room Air 01/09/24 04:30 36.8 C 89 18 120/79 97 Room Air 01/09/24 00:20 36.8 C 81 18 136/76 97 Room Air
[2024-01-09] MEDS: IRON SUCROSE 200 MG in 0.9 % SODIUM CHLORIDE 100 ML IV ONE (09:34)
[2024-01-09] MEDS ORDERED: bisacodyL 5 MG TABEC PO SCH (20:00)
== END 2024-01-09 16:18 | disposition home health service (06) | DRG 807 ==
LOC: 4S1 23:17 → 4E2 01-08 11:57